=== PATIENT | female | born 1990 ===

== ENCOUNTER 2016-08-27 19:58 | Emergency (ER) | payer OTHER, MEDICAID ==
[2016-08-27 20:02] VITALS: BP 133/98; BMI 24.0
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
[2016-08-27 22:19] VITALS: PULSE 81; RESP 16; TEMP 98.1; O2SAT 99
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
== END 2016-08-27 22:20 | disposition home or self-care (01) ==
LOC: ED 19:58
DX: S16.1XXA Strain of muscle, fascia and tendon at neck level, initial encounter (principal); S93.402A Sprain of unspecified ligament of left ankle, initial encounter; V49.49XA Driver injured in collision with other motor vehicles in traffic accident, initial encounter; Y92.410 Unspecified street and highway as the place of occurrence of the external cause